=== PATIENT | female | born 1985 | race African-American/Black ===

== ENCOUNTER 2017-12-25 15:40 | Inpatient (IN) ==
[2017-12-25] MEDS: LACTATED RINGERS 1,000 ML IV SCH (15:40)
[2017-12-25] MEDS ORDERED: MAGNESIUM SULF DRIP 40 GM/1,000 ML ML IV ONE (15:50)
[2017-12-25] MEDS ORDERED: MAGNESIUM SULF RIDER 100 ML IV ONE (15:50)
[2017-12-25] MEDS ORDERED: MAGNESIUM SULF RIDER 4 GM in PREMIX 1 EACH IV ONE (15:58)
[2017-12-25] MEDS ORDERED: MAGNESIUM SULF DRIP 40 GM/1,000 ML ML IV SCH (16:00)
[2017-12-25 16:21] LABS: Apearance,Urine CLEAR (Clear); Bilirubin,Urine Negative (Negative); Blood, Urine Small mg/dL (Negative); Glucose,Urine (UA) Negative (Negative); Ketones,Urine 5 mg/dL (Negative); Mucus,Urine Occasional /LPF (Occasional); Nitrite,Urine Negative (Negative); Protein,Urine 30 MG/DL; RBC,Urine <1 /HPF (0-4); Squamous Epithelial Cell,Urine Occasional /HPF (0-10); Urine Color Yellow (Yellow); Urine Urobilinogen < 2.0 EU/DL (0.2-1.0); WBC,Urine 3 /HPF (0-6)
[2017-12-25 16:22] LABS: Basophils % 0.1 % (0.0-0.8); Eosinophils # 0.1 10*3/uL (0.0-0.87); Eosinophils % 1.3 % (0.00-10.9); Hematocrit 25.7 VOL% (35.7-47.0); Hemoglobin 8.9 GM/DL (12.0-16.0); Immature Granulocytes % 0.8 %; Immature Granulocytes Absolute 0.06 #; Lymphocytes # 2.1 10*3/uL (1.4-4.0); Lymphocytes % 26.6 % (21.3-54.2); Mean Corpuscular HGB Conc 34.6 GM/DL (32-36); Mean Corpuscular Hemoglobin 33 PG (27-34); Mean Corpuscular Volume 95.2 FL (87-102); Mean Platelet Volume 10.2 FL (9.6-12.0); Monocytes # 0.4 10*3/uL (0.11-0.8); Monocytes % 5.6 % (1.7-12.7); Neutrophils # 5.2 10*3/uL (1.4-7.4); Neutrophils % 65.6 % (38.7-73.9); Platelet Count 249 T/CUMM (130-400); Red Cell Distribution Width 16.6 % (9.3-17.3); White Blood Count 7.9 T/CUMM (4-12)
[2017-12-25 16:44] LABS: Albumin 2.8 G/DL (3.4-5.0); Bilirubin,Total 0.7 MG/DL (0.2-1.0); Calcium 8.6 MG/DL (8.5-10.1); Total Protein 6.5 G/DL (6.4-8.3)
[2017-12-25 16:45] LABS: Osmolality,Calculated 282.8 MOS/KG (273-304); Potassium 2.6 MMOL/L (3.5-5.1)
[2017-12-25] MEDS: POTASSIUM CHLORIDE RIDER 10 MEQ in PREMIX 1 EACH IV PRN ×4 (18:43→23:51)
[2017-12-25] MEDS: ACETAMINOPHEN 325 MG TABLET PO PRN (23:49)
[2017-12-26] MEDS: POTASSIUM CHLORIDE RIDER 10 MEQ in PREMIX 1 EACH IV PRN ×9 (01:05→19:35)
[2017-12-26] MEDS: ACETAMINOPHEN 325 MG TABLET PO PRN ×3 (05:06→18:16)
[2017-12-26] MEDS ORDERED: MAGNESIUM SULF DRIP 40 GM/1,000 ML ML IV SCH ×2 (05:21→14:47)
[2017-12-26] MEDS ORDERED: POTASSIUM CHLORIDE RIDER 10 MEQ in PREMIX 1 EACH IV PRN (06:00)
[2017-12-26] MEDS: CITALOPRAM 20 MG TABLET PO SCH (10:11)
[2017-12-26] MEDS: LACTATED RINGERS 1,000 ML IV SCH (15:58)
[2017-12-26] MEDS ORDERED: POTASSIUM CHLORIDE INJ 10 MEQ in SODIUM CHLORIDE 0.9% 1,000 ML IV SCH (18:00)
[2017-12-26] MEDS ORDERED: LACTATED RINGERS 1,000 ML IV SCH (18:20)
[2017-12-26] MEDS: POTASSIUM CHLORIDE 10 MEQ TABLET PO SCH (21:26)
[2017-12-27] MEDS: ACETAMINOPHEN 325 MG TABLET PO PRN (00:03)
[2017-12-27] MEDS: CITALOPRAM 20 MG TABLET PO SCH (09:53)
[2017-12-27] MEDS: POTASSIUM CHLORIDE 10 MEQ TABLET PO SCH (09:53)
[2017-12-27 11:56] VITALS: BP 115/75
== END 2017-12-27 16:00 | disposition home or self-care (01) | DRG 561 ==
LOC: N.OB 15:51
PROVIDERS: ADMIT Obstetrics & Gynecology; ATTEND Obstetrics & Gynecology